=== PATIENT | male | born 1990 | race Caucasian/White ===

== ENCOUNTER → 2017-03-21 | Outpatient (CLI) | payer BC ==
[2017-03-21 07:29] LABS: SPERM MORPHOLOGY SENT TO REFERENC LAB
[2017-03-21 09:00] LABS: ROUND CELL CONC. 1.5 X10^6/mL (<5.1); SA DILUTION CNT 1 139; SA DILUTION CNT 2 151; SA DILUTION FACTOR 2; SA NONMOTILE CONCENTRATION 15.7 X10^6/mL; SA NONMOTILE COUNT1 151; SA NONMOTILE COUNT2 163; SA ROUND CELL COUNT1 16; SA ROUND CELL COUNT2 14; SA SPERM MOTILE CONC 13.3 X10^6mL; SPERM PROGRESSION 3; TOTAL SPERM COUNT 168.2 X10^6 (>33.0)
== END ==
LOC: LAB 07:11
PROVIDERS: ATTEND Specialist
DX: N46.9 Male infertility, unspecified (principal)
CPT/HCPCS: 89320